=== PATIENT | male | born 1970 | race Caucasian/White ===

== ENCOUNTER 2023-10-05 20:10 | Emergency (ER) | payer OTHER, SELFPAY ==
[2023-10-05 20:11] VITALS: BP 179/106; PULSE 98; RESP 18; TEMP 37.6; O2SAT 97; BMI 32.6
[2023-10-05 20:23] VITALS: O2SAT 97
--- NOTE | 2023-10-05 21:11 | EKG12_ITS ---
Test Reason : CP Blood Pressure : / mmHG Vent. Rate : 077 BPM Atrial Rate : 077 BPM P-R Int : 168 ms QRS Dur : 100 ms QT Int : 354 ms P-R-T Axes : 052 004 037 degrees QTc Int : 400 ms Normal sinus rhythm Normal ECG Confirmed by EILEEN KNIGHT, JOSE ([id number]), index editor JEANETTE GERMAIN ([id number]) on 10/07/2023 9:09:54 AM Referred By: SUDEEP Confirmed By:JOSE ARELLANO MD
--- NOTE | 2023-10-05 21:12 | EX.ED.VIS.UR ---
HPI HPI - URI History of Present Illness Chief Complaint: Cough Informant: patient Onset/Context/Timing Onset: Days (2-3) Context: Gradual Onset Timing: Continuous Quality: Burning Location: Chest Worsened by: - (Coughing) Relieved by: - (Nothing) Associated Symptoms Associated Symptoms: Positive for Nasal Congestion, Headache, Sinus Pressure, Myalgias, Nausea, Diarrhea, Chest Pain and Productive Cough; Negative for Vomiting or Shortness of Breath Narrative Narrative: Patient presents with fever and chest pain that has been getting worse over the past 2 to 3 days. Patient states it is gradually getting worse. Patient states he has some burning in his chest. Patient states he also has some sharp pain in his upper thoracic area near his right scapula. Patient states his pain is worse with coughing. Patient admits to headache, sinus pressure, nasal congestion. Patient admits to some nausea but denies any vomiting. Patient admits to some diarrhea but denies any melena or hematochezia. Patient states he is coughing up some dark green sputum. Patient admits to some general myalgias. ROS ROS ED Constitutional Constitutional ED: Reports fever(s); Denies chills Eyes Eyes: Denies blurry vision or change in vision ENT ENT ED: Reports rhinorrhea; Denies sore throat Cardiovascular Cardiovascular: Reports chest pain; Denies palpitations Respiratory/Chest Respiratory/Chest: Reports cough and dyspnea Gastrointestinal Gastrointestinal: Reports diarrhea and nausea; Denies vomiting Genitourinary Genitourinary ED: Denies dysuria or hematuria Musculoskeletal Musculoskeletal: Reports back pain; Denies neck pain Integumentary Denies abscess or rash Neurologic Neurologic: Denies headache(s) or weakness Allergic/Immunologic Allergic/Immunologic ED: Denies mouth swelling or urticaria [facility] Medical History Hypercholesteremia Hypertension Home Medications Fenofibrate 54 mg PO DAILY 12/30/16 [History Last Taken 12/29/16] Lisinopril/Hydrochlorothiazide [Zestoretic 20/25 Tablet] 1 tab PO DAILY 12/30/16 [History Last Taken 12/29/16] aspirin 81 mg tablet,delayed release (Aspir-Low) 81 mg PO DAILY ##1 12/30/16 [Rx Last Taken Unknown] atorvastatin 20 mg tablet 20 mg PO DAILY 12/30/16 [History Last Taken 12/29/16] metoprolol succinate 50 mg tablet,extended release 24 hr (Toprol XL) 100 mg PO DAILY 12/30/16 [History Last Taken 12/29/16] oseltamivir 75 mg capsule 75 mg PO BID #10 CAPSULES 10/05/23 [Rx Last Taken Unknown] Allergy/AdvReac Type Severity Reaction Status Date / Time No Known Allergies Allergy Verified 10/05/23 20:13 Surgical History H/O hand surgery History of hernia surgery Social History Smoking Status: Former smoker EXAM Physical Exam Const Vital Signs: 10/05/23 20:11 10/05/23 20:23 10/05/23 21:31 Temperature 99.6 F H 102.6 F H Temperature Source Oral Oral Pulse Rate 98 Respiratory Rate 18 Respiratory Effort Normal Non-Labored Respiratory Depth Normal Respiratory Pattern Normal Blood Pressure 179/106 H Blood Pressure Mean 130 Pulse Ox 97 Oxygen Delivery Method Room Air Room Air 10/05/23 23:00 Temperature Temperature Source Pulse Rate 80 Respiratory Rate 15 Respiratory Effort Respiratory Depth Respiratory Pattern Blood Pressure 149/78 H Blood Pressure Mean 101 Pulse Ox 97 Oxygen Delivery Method Room Air Positive well nourished and well developed General Appearance ED: well developed and NAD HEENT Reports moist mucous membranes Neck supple, no meningeal signs and no JVD Resp normal respiratory effort and clear to auscultation bilaterally Cardio Rate: regular rate Rhythm: regular rhythm GI non-tender and non-distended Palpation: soft Extremity normal to inspection and full ROM General Extremety ED: Negative for tenderness Neuro oriented x3, CN's II-XII intact bilaterally and no sensory deficits noted Sensorium / Orientation: alert Motor Exam: strength 5/5 throughout Psych mental status grossly normal MDM MDM MDM Narrative Medical decision making narrative: Differential diagnosis includes pneumonia, upper respiratory infection, viral illness, dehydration, dysrhythmia, cardiac ischemia, and electrolyte abnormality. EKG will be obtained to assess for cardiac arrhythmia and cardiac ischemia. CBC will be obtained to assess for leukocytosis and anemia. Basic metabolic profile will be obtained to assess for electrolyte abnormality and renal function. High-sensitivity troponin will be obtained to assess for cardiac ischemia. Chest x-ray will be obtained to assess for pneumonia. COVID-19, influenza, and RSV PCR will be obtained to assess for viral infection. Lab Data Attestation: I reviewed the patient's lab results. Lab results narrative: CBC was reviewed and was within normal limits. Basic metabolic profile was reviewed. Creatinine was slightly elevated at 1.37. Remainder is within normal limits. High-sensitivity troponin was reviewed and was normal at 4. COVID-19 PCR was reviewed and was negative. Influenza PCR was reviewed and was positive for influenza A and negative for influenza B. RSV PCR was reviewed and was negative. Labs: Laboratory Results - last 24 hr 10/05/23 21:30 WBC 5.4 RBC 4.82 Hgb 13.8 Hct 41.0 MCV 85.1 MCH 28.6 MCHC 33.7 RDW Std Deviation 38.8 RDW Coeff of Susi 12.6 Plt Count 202 MPV 9.1 Immature Gran % (Auto) 0.200 Neut % (Auto) 70.4 H Lymph % (Auto) 13.1 L [place] % (Auto) 11.0 H Eos % (Auto) 4.7 Baso % (Auto) 0.6 Absolute Neuts (auto) 3.8 Absolute Lymphs (auto) 0.70 L Nucleated RBC % 0 Sodium 138 Potassium 3.5 Chloride 104 Carbon Dioxide 29.0 Anion Gap 5 BUN 13 Creatinine 1.37 H Estim Creat Clear Calc 71.94 Est GFR (MDRD) Af Amer 70 Est GFR (MDRD) Non-Af 58 L BUN/Creatinine Ratio 9.5 L Glucose 167 H Calcium 8.9 Troponin I High Sens 4 EKG Initial EKG: Attestation: I personally reviewed and interpreted this EKG as follows: Interpretation: Sinus Rhythm (77) and No Acute Injury Pattern Comments: EKG was obtained. On my independent interpretation, it showed a normal sinus rhythm with a rate of 77. VT interval, QRS interval, and QTc intervals were all normal. [place] was normal. There are no acute ST or T wave changes. Prior EKG tracings: available for review Prior: Unchanged (12/30/2016 ) Treatment and Re-Evaluation Narrative: Patient was advised of his findings. Patient has had symptoms for 2 days. Patient was given a dose of Tamiflu here. Patient was given a prescription for Tamiflu. Patient was instructed to drink plenty of fluids. Patient was instructed take Tylenol or ibuprofen as needed for pain. Patient understood and was agreeable with the plan. All questions were answered. Discharge Plan Triage Chief Complaint: Cough ED Provider: Adonis Springer Dx/Rx/DC Orders Clinical Impression: Influenza A, Hypertension Instructions: ED Influenza (Adult) Prescriptions: New oseltamivir [oseltamivir] 75 mg capsule 75 mg PO BID Qty: 10 0RF No Action atorvastatin 20 MG tablet 20 mg PO DAILY Patient Comments: cholesterol metoprolol succinate [Toprol XL] 50 MG tablet extended release 24 hr 100 mg PO DAILY Patient Comments: bp Fenofibrate 54 mg PO DAILY Patient Comments: cholesterol Lisinopril/Hydrochlorothiazide [Zestoretic 20/25 Tablet] 1 TABLET tablet 1 tab PO DAILY Patient Comments: bp aspirin [Aspir-Low] 81 MG tablet,delayed release (DR/EC) 81 mg PO DAILY Qty: 1 0RF Primary Care Provider: Hua Gaxiola Referrals: Hua Gaxiola MD [Primary Care Provider] - 5-7 Days Disposition Disposition: Home, Self Care
[2023-10-05 21:31] VITALS: TEMP 39.2
[2023-10-05] MEDS: 0.9% Normal Saline (1000mL) 1,000 ML 1000 ML IV (21:31)
[2023-10-05] MEDS: Acetaminophen 500 MG Tablet 1000 MG PO (21:32)
[2023-10-05 21:33] LABS: Absolute Neutrophil Count 3.8 X10^3/uL (2.0-7.7); Basophil# 0.03 X10^3/uL; Basophil% 0.6 % (0-1); Eosinophil# 0.25 X10^3/uL; Eosinophils% 4.7 % (0-5); Hemoglobin 13.8 g/dL (13.0-16.5); Lymphocyte % 13.1 % (19-41); Mean Corp Hgb Conc 33.7 g/dL (32-36); Mean Corpuscular Hgb 28.6 pg (27.0-32.0); Mean Corpuscular Volume 85.1 fL (80-94); Mean Platelet Vol. 9.1 fl (6.2-12.0); Monocyte# 0.59 X10^3/uL; NRBC Flagged by Analyzer 0 % (0-5); Neutrophil # 3.78 X10^3/uL (2.7-7.7); Neutrophil % 70.4 % (47-70); Platelet Count 202 K/mm3 (150-450); RBC Distribution Width CV 12.6 % (11.6-14.6); RBC Distribution Width SD 38.8 fl (35.1-43.9); Red Blood Count 4.82 M/mm3 (4.6-6.2); White Blood Count 5.4 K/mm3 (4.4-11.0)
--- NOTE | 2023-10-05 21:45 | RAD_ITS ---
STUDY: X-RAY CHEST REASON FOR EXAM: Male, 53 years old. Fever TECHNIQUE: Frontal and lateral views of the chest. COMPARISON: None. FINDINGS: The lungs are clear and expanded. There is no demonstrated pleural abnormality. Normal size heart. Normal mediastinum and jennyfer. Normal visualized pulmonary arteries. Normal visualized aortic arch and descending thoracic aorta. Normal visualized thoracic spine. Normal visualized ribs, clavicles, and shoulders. There is no demonstrated abnormality of the visualized soft tissue structures of the upper abdomen. RAD/Chest PA and Lateral IMPRESSION: Normal x-ray examination of the chest. Electronically Signed: Andrew Ward MD at 23:26 EDT ,
[2023-10-05 21:58] LABS: Anion Gap 5 (5-15); BUN 13 mg/dL (7-18); BUN/Creat Ratio 9.5 RATIO (10-20); Calcium,Total 8.9 mg/dL (8.5-10.1); Chloride 104 mmol/L (98-107); Creatinine, Serum 1.37 mg/dL (0.70-1.30); EST Glomerular Filtration Rate 58 mL/min (>60); Est Glom Filt Rate - Afr Amer 70 mL/min (>60); Estimated Creatinine Clearance 71.94 ml/min; Glucose 167 mg/dL (74-106); Potassium 3.5 mmol/L (3.5-5.1); Sodium Level 138 mmol/L (136-145); Troponin-I HS 4 pg/mL (3.0-78.0)
[2023-10-05 23:00] VITALS: BP 149/78; PULSE 80; RESP 15; O2SAT 97
[2023-10-05 23:29] VITALS: BP 149/78; PULSE 87; RESP 18; TEMP 38.4; O2SAT 95
[2023-10-05] MEDS: Oseltamivir Phosphate 75 MG Capsule PO (23:31)
== END 2023-10-05 23:34 | disposition home or self-care (01) ==
PROVIDERS: Emergency Provider Emergency Medicine; PCP Family Medicine; Visit Provider Emergency Medicine
DX: J10.1 Influenza due to other identified influenza virus with other respiratory manifestations (principal); I10 Essential (primary) hypertension; R19.7 Diarrhea, unspecified; Z79.82 Long term (current) use of aspirin; Z79.899 Other long term (current) drug therapy; Z87.891 Personal history of nicotine dependence
CPT/HCPCS: 71046; 80048; 84484; 85025; 87631; 93005; 96360; 99284; J7030